=== PATIENT | female | born 1950 | race Caucasian/White ===

== ENCOUNTER 2024-05-08 10:41 | Outpatient (OUT) | payer MEDICARE, SELFPAY ==
--- NOTE | 2024-05-08 | XR_ITS ---
[address] [address] Patient Name: OPAL PEOPLES MRN: [id number] date: 1950 Sex: F Assigned Patient Location: Current Patient Location: Accession/Order Number: [id number] Exam Date: 05/08/2024 10:45 Report Date: 05/11/2024 04:07 At the request of: KAY RIVERA Procedure: XR lumbar spine min 4V EXAMINATION: XR lumbar spine min 4V HISTORY: LUMBAR PAIN COMPARISON: MRI lumbar spine 03/19/2024 FINDINGS: BONES: Mild compression fractures of T11 and T12. Moderate compression fracture of L1. No spondylolisthesis or or change in alignment during flexion and extension. Multilevel moderate degenerative facet arthropathy. DISC SPACES: No significant disc height narrowing, subluxation, or endplate abnormality. PARASPINOUS: Negative. No paraspinous abnormality is seen. OTHER: Negative. XR/XR lumbar spine min 4V IMPRESSION: 1. Stable compression fractures of T11, T12, L1. 2. Multilevel moderate degenerative facet arthropathy. 3. No listhesis or change in alignment during flexion and extension. Electronically authenticated by: SILVIA NORTON Date: 05/11/2024 04:07
== END 2024-05-08 10:42 | disposition home or self-care (01) ==
LOC: EC 10:41
PROVIDERS: Visit Provider Orthopaedic Surgery Orthopaedic Surgery of the Spine
DX: M54.50 Low back pain, unspecified (principal); M48.55XD Collapsed vertebra, not elsewhere classified, thoracolumbar region, subsequent encounter for fracture with routine healing; M47.816 Spondylosis without myelopathy or radiculopathy, lumbar region
CPT/HCPCS: 72110